=== PATIENT | male | born 1955 | race Caucasian/White ===

== ENCOUNTER 2017-08-03 13:26 | Inpatient (IN) | payer OTHER ==
[~2017-08-03] VITALS: Ht 177.8 cm; Wt 118.7 kg
[~2017-08-03 13:26] MED LIST: AMLO5TAB2 PO; ATEN25TA PO; FEBU40TA PO; FENO135C PO; LISI-167 PO; PIOG15TA22 PO; PITA1TAB2 PO
[2017-08-03] MEDS ORDERED: SODIUM CHLORIDE FLUSH 10ML SYR IVF ONE (14:30)
[2017-08-03 14:47] LABS: HEMATOCRIT 48.9 % (39.2-51.8); HEMOGLOBIN 16.5 g/dL (13.7-18.0); WHITE BLOOD COUNT 8.1 x10^3/uL (3.4-10)
[2017-08-03 14:58] LABS: BLOOD UREA NITROGEN 15 mg/dL (7-18)
[2017-08-03 15:03] LABS: IS PT STATUS REG ER OR PRE ER? YES
[2017-08-03] MEDS ORDERED: ASPIRIN 81 MG TABLET CHEW PO ONE (16:30)
[2017-08-03] MEDS ORDERED: SODIUM CHLORIDE FLUSH 10ML SYR IVF PRN (16:30)
[2017-08-03] MEDS ORDERED: ASPIRIN 81 MG TABLET CHEW ONE (16:32)
[2017-08-03] MEDS ORDERED: LABETALOL 5MG/ML, 20ML IVPush PRN (18:00)
[2017-08-03] MEDS ORDERED: DOCUSATE 100 MG CAPSULE PO PRN (18:00)
[2017-08-03] MEDS ORDERED: POLYETHYLENE GLYCOL 17 GM PACKET PO PRN (18:00)
[2017-08-03] MEDS ORDERED: BISACODYL 10 MG SUPP PR PRN (18:00)
[2017-08-03 18:14] VITALS: BP 158/79
[2017-08-03] MEDS ORDERED: LANS30CA PO (18:24)
[2017-08-03] MEDS ORDERED: ATEN25TA PO (18:24)
[2017-08-03] MEDS ORDERED: PIOG30TA4 PO (18:24)
[2017-08-03] MEDS ORDERED: ALLO100T30 PO (18:24)
[2017-08-03] MEDS ORDERED: LISI40TA PO (18:24)
[2017-08-03] MEDS ORDERED: AMLO5TAB2 PO (18:24)
[2017-08-03] MEDS ORDERED: GLUCAGON 1 MG IM PRN (18:30)
[2017-08-03] MEDS ORDERED: DEXTROSE 4 GM TAB.CHEW PO PRN (18:30)
[2017-08-03] MEDS ORDERED: DEXTROSE 50%, 50ML SYRINGE IVPush PRN (18:30)
[2017-08-03] MEDS: morphine SULFATE 10 MG/ML, 1ML IVPush PRN ×2 (18:30→21:25)
[2017-08-03 19:23] LABS: IS PT STATUS REG ER OR PRE ER? NO
[2017-08-03 20:24] VITALS: BP 143/79
[2017-08-03] MEDS: INSULIN ASPART 100 UNITS/ML, PEN SQ-INSULIN SCH (20:31)
[2017-08-03] MEDS: SODIUM CHLORIDE FLUSH 10ML SYR IVF SCH (20:34)
[2017-08-03] MEDS: ACETAMINOPHEN 325 MG TABLET PO PRN (20:34)
[2017-08-03] MEDS: ENOXAPARIN 40 MG/0.4 ML SQ SCH (20:34)
[2017-08-04 01:14] LABS: IS PT STATUS REG ER OR PRE ER? NO
[2017-08-04 02:05] VITALS: BP 132/76
[2017-08-04 05:17] LABS: HEMATOCRIT 48.1 % (39.2-51.8); HEMOGLOBIN 16.2 g/dL (13.7-18.0); WHITE BLOOD COUNT 8.1 x10^3/uL (3.4-10)
[2017-08-04 05:33] LABS: BLOOD UREA NITROGEN 17 mg/dL (7-18)
[2017-08-04 05:44] LABS: ASPARTATE AMINO TRANSFERASE 37 U/L (15-37)
[2017-08-04] MEDS: ASPIRIN 325 MG TABLET EC PO SCH (05:49)
[2017-08-04 06:58] VITALS: BP 134/73
[2017-08-04] MEDS: INSULIN ASPART 100 UNITS/ML, PEN SQ-INSULIN SCH ×4 (07:00→20:09)
[2017-08-04] MEDS: SODIUM CHLORIDE FLUSH 10ML SYR IVF SCH ×2 (08:15→20:09)
[2017-08-04] MEDS ORDERED: REGADENOSON 0.4 MG/5 ML SYRINGE ONE (08:17)
[2017-08-04] MEDS ORDERED: NITROGLYCERIN 0.4 MG BOTTLE (25 TABS) SL PRN (11:30)
[2017-08-04] MEDS ORDERED: NITROGLYCERIN 0.4 MG/SPRAY SL PRN (11:30)
[2017-08-04 11:42] VITALS: BP 151/89
[2017-08-04] MEDS: VALPROATE SODIUM 500 MG in SODIUM CHLORIDE 0.9% 100 ML IV PRN ×2 (12:40→18:40)
[2017-08-04] MEDS: PANTOPROZOLE 40MG TABLET PO SCH (13:27)
[2017-08-04] MEDS: LISINOPRIL 20 MG TABLET PO SCH (13:27)
[2017-08-04] MEDS: ALLOPURINOL 100 MG TABLET PO SCH (13:28)
[2017-08-04] MEDS: AMLODIPINE 5 MG TABLET PO SCH (13:28)
[2017-08-04] MEDS: ATENOLOL 50 MG TABLET PO SCH (13:28)
[2017-08-04 14:06] VITALS: BP 142/76
[2017-08-04] MEDS: LORazepam 2 MG/ML, 1ML IVPush PRN ×2 (14:28→20:24)
[2017-08-04] MEDS ORDERED: GADOBUTROL 10 MMOL/10 ML PFS ONE (14:56)
[2017-08-04 19:14] VITALS: BP 129/71
[2017-08-04] MEDS: ENOXAPARIN 40 MG/0.4 ML SQ SCH (20:09)
[2017-08-04] MEDS ORDERED: ATORVASTATIN 80 MG TABLET PO SCH (21:00)
[2017-08-05 02:30] VITALS: BP 156/88
[2017-08-05] MEDS: ASPIRIN 325 MG TABLET EC PO SCH (06:19)
[2017-08-05] MEDS: INSULIN ASPART 100 UNITS/ML, PEN SQ-INSULIN SCH ×2 (07:00→11:00)
[2017-08-05 07:24] VITALS: BP 155/88
[2017-08-05] MEDS: ACETAMINOPHEN 325 MG TABLET PO PRN ×2 (07:25→14:56)
[2017-08-05] MEDS: PANTOPROZOLE 40MG TABLET PO SCH (07:25)
[2017-08-05] MEDS: ALLOPURINOL 100 MG TABLET PO SCH (09:17)
[2017-08-05] MEDS: ATENOLOL 50 MG TABLET PO SCH (09:17)
[2017-08-05] MEDS: LISINOPRIL 20 MG TABLET PO SCH (09:17)
[2017-08-05] MEDS: AMLODIPINE 5 MG TABLET PO SCH (09:18)
[2017-08-05] MEDS: SODIUM CHLORIDE FLUSH 10ML SYR IVF SCH (09:18)
[2017-08-05] MEDS: VALPROATE SODIUM 500 MG in SODIUM CHLORIDE 0.9% 100 ML IV PRN (10:03)
[2017-08-05 14:39] VITALS: BP 135/71
[2017-08-05] MEDS ORDERED: ASPI-650 PO (15:08)
[2017-08-05] MEDS ORDERED: NITROGLYCERIN 0.4 MG/SPRAY SL PRN (19:30)
[2017-08-05] MEDS ORDERED: LABETALOL 5MG/ML, 20ML IVPush PRN (19:30)
[2017-08-05] MEDS ORDERED: ACETAMINOPHEN 325 MG TABLET PO PRN (19:30)
[2017-08-05] MEDS ORDERED: DEXTROSE 50%, 50ML SYRINGE IVPush PRN (19:30)
[2017-08-05] MEDS ORDERED: BISACODYL 10 MG SUPP PR PRN (19:30)
[2017-08-05] MEDS ORDERED: DEXTROSE 4 GM TAB.CHEW PO PRN (19:30)
[2017-08-05] MEDS ORDERED: POLYETHYLENE GLYCOL 17 GM PACKET PO PRN (19:30)
[2017-08-05] MEDS ORDERED: NITROGLYCERIN 0.4 MG BOTTLE (25 TABS) SL PRN (19:30)
[2017-08-05] MEDS ORDERED: GLUCAGON 1 MG IM PRN (19:30)
[2017-08-05] MEDS ORDERED: DOCUSATE 100 MG CAPSULE PO PRN (19:30)
[2017-08-05] MEDS ORDERED: SODIUM CHLORIDE FLUSH 10ML SYR IVF SCH (21:00)
== END 2017-08-05 19:27 | disposition home or self-care (01) | DRG 643 ==
LOC: ED 14:52 → EDIP 16:27 → 5SO 18:07
PROVIDERS: ADMIT Hospitalist; ATTEND Family Medicine
DX: E23.6 Other disorders of pituitary gland (principal); G93.5 Compression of brain; I20.0 Unstable angina; E11.9 Type 2 diabetes mellitus without complications; E23.0 Hypopituitarism; I65.29 Occlusion and stenosis of unspecified carotid artery; E78.5 Hyperlipidemia, unspecified; F17.210 Nicotine dependence, cigarettes, uncomplicated; G43.109 Migraine with aura, not intractable, without status migrainosus; H54.61 Unqualified visual loss, right eye, normal vision left eye; I10 Essential (primary) hypertension; I25.2 Old myocardial infarction; M10.9 Gout, unspecified; Z66 Do not resuscitate; Z79.82 Long term (current) use of aspirin; Z79.899 Other long term (current) drug therapy; Z82.0 Family history of epilepsy and other diseases of the nervous system; Z82.3 Family history of stroke; Z82.49 Family history of ischemic heart disease and other diseases of the circulatory system; Z85.528 Personal history of other malignant neoplasm of kidney; Z86.73 Personal history of transient ischemic attack (TIA), and cerebral infarction without residual deficits; Z90.5 Acquired absence of kidney
CPT/HCPCS: 36415; 70450; 70544; 70553; 71010; 78452; 80048; 80053; 80061; 82040; 82962; 83735; 84100; 84443; 84484; 85025; 85610; 85730; 93005; 93017; 93306; 93880; 99285; A9585; J1650; J2785; A9502; C9898; J2060; J2270

== ENCOUNTER → 2017-09-06 | Outpatient (CLI) | payer OTHER ==
[~2017-09-06] MED LIST changes: +ALLO100T30 PO; +ASPI-496 PO; +ASPI-650 PO; +CALC1CAP8 PO; +CHOL5000 PO; +DEXAMETHASONE PO; +LANS30CA PO; +LISI40TA PO; +MULT-224 PO; +Milk Thistle PO; +OMEG-14 PO; +OXYC-302 PO; +PIOG30TA4 PO; +PITA4TAB2 PO; +testosterone IM
[2017-09-06 12:26] LABS: HEMATOCRIT 50.1 % (39.2-51.8); HEMOGLOBIN 16.9 g/dL (13.7-18.0); WHITE BLOOD COUNT 9.2 x10^3/uL (3.4-10)
[2017-09-06 12:36] LABS: ASPARTATE AMINO TRANSFERASE 30 U/L (15-37); BLOOD UREA NITROGEN 15 mg/dL (7-18)
== END | disposition home or self-care (01) ==
LOC: STAR 11:16
PROVIDERS: ATTEND Neurological Surgery
DX: Z01.818 Encounter for other preprocedural examination (principal); E23.6 Other disorders of pituitary gland
CPT/HCPCS: 36415; 71020; 80053; 83036; 85025; 85610; 85730

== ENCOUNTER 2017-09-20 10:14 | Inpatient (IN) | payer OTHER ==
[~2017-09-20] VITALS: Ht 175.3 cm; Wt 119.2 kg
[~2017-09-20 10:14] MED LIST changes: -DEXAMETHASONE PO; -OXYC-302 PO
[2017-09-20 10:42] VITALS: BP 155/94
[2017-09-20] MEDS ORDERED: LACTATED RINGERS 1,000 ML IV SCH (10:46)
[2017-09-20] MEDS ORDERED: COCAINE TOPICAL SOLN 4%, 4ML ONE (11:26)
[2017-09-20] MEDS ORDERED: BACITRACIN OINT 500U/GM, 15 GM ONE (11:26)
[2017-09-20] MEDS ORDERED: LIDOCAINE/PF 1%, 30ML ONE (11:26)
[2017-09-20] MEDS ORDERED: BACITRACIN 50,000 UNIT ONE (11:26)
[2017-09-20] MEDS ORDERED: EPINEPHRINE 1 MG/ML, 1ML ONE (11:26)
[2017-09-20] MEDS ORDERED: THROMBIN 5,000 UNIT VIAL TP ONE (11:27)
[2017-09-20] MEDS ORDERED: FENTANYL PF 250 MCG/5ML ONE (13:04)
[2017-09-20] MEDS ORDERED: MIDAZOLAM 1 MG/ML, 2ML ONE (13:04)
[2017-09-20] MEDS ORDERED: EPINEPHRINE TOPICAL SOLN 1 MG/ML, 30ML ONE (14:11)
[2017-09-20] MEDS ORDERED: FLUORESCEIN OPHTHALMIC 1 MG STRIP ONE (14:11)
[2017-09-20] MEDS ORDERED: COCAINE TOPICAL SOLN 4%, 4ML TP ONE (14:15)
[2017-09-20] MEDS ORDERED: HYDROmorphone 2 MG/ML, 1ML ONE (15:47)
[2017-09-20] MEDS ORDERED: THROMBIN 20,000 UNIT VIAL TP ONE (15:55)
[2017-09-20] MEDS ORDERED: DEXAMETHASONE 4 MG/ML, 1ML ONE (16:28)
[2017-09-20] MEDS ORDERED: ONDANSETRON 2MG/ML, 2ML ONE (16:28)
[2017-09-20] MEDS ORDERED: CEFAZOLIN 1,000 MG ONE (16:28)
[2017-09-20] MEDS ORDERED: PROPOFOL 10 MG/ML, 20ML ONE (16:28)
[2017-09-20] MEDS ORDERED: ROCURONIUM 10 MG/ML,10ML ONE (16:28)
[2017-09-20] MEDS ORDERED: NEOSTIGMINE 1 MG/ML, 10ML ONE (16:28)
[2017-09-20] MEDS ORDERED: SUCCINYLCHOLINE 20 MG/ML, 10ML ONE (16:28)
[2017-09-20] MEDS ORDERED: GLYCOPYRROLATE 0.2MG/1ML, 5ML ONE (16:28)
[2017-09-20] MEDS ORDERED: FENTANYL PF 100 MCG/2ML ONE (16:42)
[2017-09-20] MEDS ORDERED: HYDROcodone/APAP 7.5-325MG/15ML UDC ONE ×2 (16:43→17:03)
[2017-09-20] MEDS: HYDROmorphone 1 MG/ML, 1ML IV PRN ×4 (16:46→17:28)
[2017-09-20] MEDS ORDERED: HYDROmorphone 1 MG/ML, 1ML ONE ×2 (16:47→17:03)
[2017-09-20] MEDS: FENTANYL PF 100 MCG/2ML IV PRN ×3 (16:52→17:01)
[2017-09-20] MEDS ORDERED: hydrALAzine 20 MG/ML, 1ML IV PRN (17:00)
[2017-09-20] MEDS ORDERED: HYDROcodone/APAP 7.5-325MG/15ML UDC PO PRN (17:00)
[2017-09-20] MEDS ORDERED: METOPROLOL 1 MG/ML, 5ML IV PRN (17:00)
[2017-09-20] MEDS ORDERED: ACETAMINOPHEN 325 MG TABLET PO PRN ×2 (17:00→18:30)
[2017-09-20] MEDS ORDERED: PROMETHAZINE 25 MG/ML, 1ML IV PRN (17:00)
[2017-09-20] MEDS ORDERED: OXYcodone 5 MG/5 ML ORAL.SOL UDC PO PRN (17:00)
[2017-09-20] MEDS ORDERED: ALBUTEROL SULFATE 2.5 MG/3 ML NPPB PRN (17:00)
[2017-09-20] MEDS ORDERED: NITROPRUSSIDE 50 MG in DEXTROSE 5% 248 ML IV PRN (18:30)
[2017-09-20] MEDS ORDERED: ONDANSETRON 2MG/ML, 2ML IV PRN (18:30)
[2017-09-20] MEDS ORDERED: LABETALOL 250 MG in DEXTROSE 5% 200 ML IV PRN (18:30)
[2017-09-20] MEDS ORDERED: HYDROcodone/APAP 5/325 TABLET PO PRN ×2 (18:30→21:00)
[2017-09-20] MEDS ORDERED: HYDROmorphone 2 MG/ML, 1ML IV PRN (18:30)
[2017-09-20] MEDS ORDERED: ACETAMINOPHEN 650 MG SUPP PR PRN (18:30)
[2017-09-20] MEDS ORDERED: NS + 20MEQ KCL 1,000 ML IV SCH (18:30)
[2017-09-20] MEDS ORDERED: POTASSIUM CHLORIDE 20 MEQ in SODIUM CHLORIDE 0.9% 1,000 ML IV SCH (19:00)
[2017-09-20 19:23] VITALS: BP 129/70
[2017-09-20] MEDS: OXYcodone/APAP 5/325MG TABLET PO PRN (21:33)
[2017-09-20] MEDS: POTASSIUM CHLORIDE 20 MEQ in SODIUM CHLORIDE 0.9% 1,000 ML IV SCH (21:38)
[2017-09-20] MEDS: CEFAZOLIN PMX 1GM/50ML 50 ML IVPB SCH (21:38)
[2017-09-21 00:02] VITALS: BP 131/66
[2017-09-21] MEDS: OXYcodone/APAP 5/325MG TABLET PO PRN ×4 (03:05→11:55)
[2017-09-21] MEDS: CEFAZOLIN PMX 1GM/50ML 50 ML IVPB SCH (07:43)
[2017-09-21] MEDS: POTASSIUM CHLORIDE 20 MEQ in SODIUM CHLORIDE 0.9% 1,000 ML IV SCH (09:06)
[2017-09-21 11:30] VITALS: BP 145/70
[2017-09-21] MEDS ORDERED: OXYC-302 PO ×2 (11:42→12:30)
[2017-09-21] MEDS ORDERED: DEXAMETHASONE PO (12:33)
[2017-09-25] MEDS ORDERED: OXYC-302 PO (09:43)
[2017-09-25] MEDS ORDERED: MELATONIN PO (09:46)
[2017-09-25] MEDS ORDERED: ATEN50TA41 PO (09:49)
[2017-09-25] MEDS ORDERED: AMLO5TAB2 PO ×2 (09:50→09:51)
== END 2017-09-21 12:45 | disposition home or self-care (01) | DRG 615 ==
LOC: ORIP 10:14 → EDSTATUS 13:30 → 4NOR 17:58 → DCLOUNGE 09-21 12:12
PROVIDERS: ADMIT Neurological Surgery; ATTEND Neurological Surgery
PROC: 09BM8ZZ Excision of Nasal Septum, Via Natural or Artificial Opening Endoscopic (ICD-10-PCS; 2017-09-20)
PROC: 09SL8ZZ Reposition Nasal Turbinate, Via Natural or Artificial Opening Endoscopic (ICD-10-PCS; 2017-09-20)
PROC: 0GJ Endocrine System, Inspection (ICD-10-PCS; principal; 2017-09-20 13:30)
DX: E23.6 Other disorders of pituitary gland (principal); E11.9 Type 2 diabetes mellitus without complications; J34.2 Deviated nasal septum; J34.3 Hypertrophy of nasal turbinates; I10 Essential (primary) hypertension; Z53.9 Procedure and treatment not carried out, unspecified reason; Y92.89 Other specified places as the place of occurrence of the external cause
CPT/HCPCS: 36415; 70486; 82962; 86850; 86900; C1713; J0171; J0690; J1100; J1170; J2250; J2405; J2704; J2710; J3010; J3480; J3490; A4648; J0330; J7030; J7120

== ENCOUNTER → 2017-12-27 | Outpatient (CLI) | payer OTHER ==
[~2017-12-27] MED LIST changes: +ATEN50TA41 PO; +DEXAMETHASONE PO; +MELATONIN PO; +OXYC-302 PO
== END | disposition home or self-care (01) ==
LOC: CVU 09:36
PROVIDERS: ATTEND Psychiatry & Neurology Neurology
DX: I34.0 Nonrheumatic mitral (valve) insufficiency (principal); E78.5 Hyperlipidemia, unspecified; E11.9 Type 2 diabetes mellitus without complications; I10 Essential (primary) hypertension; D35.2 Benign neoplasm of pituitary gland; G45.3 Amaurosis fugax
CPT/HCPCS: 93306